=== PATIENT | male | born 1950 | race Caucasian/White ===

== ENCOUNTER 2016-12-28 22:49 | Emergency (ER) | payer OTHER ==
[~2016-12-28] VITALS: Ht 180.3 cm; Wt 108.9 kg
--- NOTE | 2016-12-28 23:57 | PHYS DOC ---
Past Medical History Past Medical History: Diabetes-Type II, High Cholesterol, Hypertension Past Surgical History: Appendectomy, Tonsillectomy, Other Additional Past Surgical Histo: LAPBAND SX Alcohol Use: Occasionally Drug Use: None Adult General Chief Complaint Chief Complaint: NAUSEA/VOMITING/DIARRHA HPI HPI Patient is a 66 year old male who presents with complaint of possible esophageal foreign body. Patient states that earlier today he was eating pizza and after his second by he felt like it may have gotten caught down in his esophagus. Patient tried drinking water which he stated initially felt like it helped, however he states that currently he is having continued symptoms. Patient states that he feels an abnormal sensation in his lower chest and upper abdomen. Patient states that he has had history of LAP-BAND procedure done 4 years ago. The patient has had no further vomiting. During patient interview, the patient spit up his own saliva. Patient is concerned that he has an esophageal obstruction and came to the emergency department for evaluation. Review of Systems Review of Systems Constitutional: Denies fever or chills [] Eyes: Denies change in visual acuity, redness, or eye pain [] HENT: Denies nasal congestion or sore throat [] Respiratory: Denies cough or shortness of breath [] Cardiovascular: Denies chest pain or edema [] GI: Vomiting, abdominal discomfort, denies diarrhea [] : Denies dysuria or hematuria [] Musculoskeletal: Denies back pain or joint pain [] Integument: Denies rash or skin lesions [] Neurologic: Denies headache, focal weakness or sensory changes [] Current Medications Current Medications Current Medications Medications (Trade) Dose Ordered Sig/Mariana Start Time Stop Time Status Last Admin Dose Admin Glucagon (Glucagen) 1 mg 1X ONCE 12/29/16 00:15 12/29/16 00:16 DC 12/29/16 00:31 1 MG Midazolam HCl (Versed) 1 mg 1X ONCE 12/29/16 00:15 12/29/16 00:16 DC 12/29/16 00:31 1 MG Sodium Chloride 1,000 ml @ 100 mls/hr Q10H 12/29/16 00:00 12/29/16 09:59 12/29/16 00:31 100 MLS/HR Allergies Allergies Allergies Coded Allergies Type Severity Reaction Last Updated Verified No Known Drug Allergies 12/28/16 No Physical Exam Physical Exam Constitutional: Alert, afebrile, appears in mild discomfort. [] HENT: Normocephalic, atraumatic, bilateral external ears normal, oropharynx moist, no oral exudates, nose normal. [] Eyes: PERRLA, EOMI, conjunctiva normal, no discharge. [] Neck: Normal range of motion, no tenderness, supple, no stridor. [] Cardiovascular:Heart rate regular rhythm, no murmur [] Lungs & Thorax: Bilateral breath sounds clear to auscultation [] Abdomen: Bowel sounds normal, soft, no tenderness, no masses, no pulsatile masses. [] Skin: Warm, dry, no erythema, no rash. [] Back: No tenderness, no CVA tenderness. [] Extremities: No tenderness, no cyanosis, no clubbing, ROM intact, no edema. [] Neurologic: Alert and oriented X 3, normal motor function, normal sensory function, no focal deficits noted. [] Current Patient Data Vital Signs Vital Signs Date Time Temp Pulse Resp B/P (MAP) Pulse Ox O2 Delivery O2 Flow Rate FiO2 12/28/16 23:20 98.3 86 18 154/85 (108) 90 Room Air 98.3 Lab Values Laboratory Tests Test 12/28/16 23:47 White Blood Count 15.1 x10^3/uL (4.0-11.0) H Red Blood Count 5.67 x10^6/uL (4.30-5.70) Hemoglobin 17.0 g/dL (13.0-17.5) Hematocrit 52.8 % (39.0-53.0) Mean Corpuscular Volume 93 fL (79-100) Mean Corpuscular Hemoglobin 30 pg (25-35) Mean Corpuscular Hemoglobin Concent 32 g/dL (31-37) Red Cell Distribution Width 15.1 % (11.5-14.5) H Platelet Count 180 x10^3/uL (140-400) Neutrophils (%) (Auto) 77 % (31-73) H Lymphocytes (%) (Auto) 13 % (24-48) L Monocytes (%) (Auto) 7 % (0-9) Eosinophils (%) (Auto) 2 % (0-3) Basophils (%) (Auto) 1 % (0-3) Neutrophils # (Auto) 11.6 x10^3uL (1.8-7.7) H Lymphocytes # (Auto) 2.0 x10^3/uL (1.0-4.8) Monocytes # (Auto) 1.0 x10^3/uL (0.0-1.1) Eosinophils # (Auto) 0.3 x10^3/uL (0.0-0.7) Basophils # (Auto) 0.2 x10^3/uL (0.0-0.2) Segmented Neutrophils % 64 % (35-66) Band Neutrophils % 4 % (0-9) Lymphocytes % 18 % (24-48) L Monocytes % 9 % (0-10) Eosinophils % 2 % (0-5) Metamyelocytes % 1 % (0-0) H Myelocytes % 2 % (0-0) H Toxic Granulation Slight Platelet Estimate Adequate (ADEQUATE) Sodium Level 141 mmol/L (136-145) Potassium Level 4.5 mmol/L (3.5-5.1) Chloride Level 103 mmol/L (98-107) Carbon Dioxide Level 29 mmol/L (21-32) Anion Gap 9 (6-14) Blood Urea Nitrogen 19 mg/dL (8-26) Creatinine 1.1 mg/dL (0.7-1.3) Estimated GFR (Cockcroft-Gault) 67.4 BUN/Creatinine Ratio 17 (6-20) Glucose Level 160 mg/dL (70-99) H Calcium Level 9.3 mg/dL (8.5-10.1) Total Bilirubin 0.3 mg/dL (0.2-1.0) Aspartate Amino Transferase (AST) 25 U/L (15-37) Alanine Aminotransferase (ALT) 23 U/L (16-63) Alkaline Phosphatase 99 U/L (46-116) Total Protein 7.5 g/dL (6.4-8.2) Albumin 4.0 g/dL (3.4-5.0) Albumin/Globulin Ratio 1.1 (1.0-1.7) Lipase 174 U/L (73-393) Laboratory Tests 12/28/16 23:47 Laboratory Tests 12/28/16 23:47 EKG EKG Not performed [] Radiology/Procedures Radiology/Procedures One view AP chest x-ray interpreted by me: No infiltrates, no effusions, normal cardiac silhouette [] Course & Med Decision Making Course & Med Decision Making Pertinent Labs and Imaging studies reviewed. (See chart for details) The patient was given IV Versed and glucagon in the emergency department. On reevaluation, patient states his symptoms seem to have resolved. The patient was given oral fluids in the emergency department which she was able to tolerate without difficulty. The patient states he feels much better and would like to go home at this time. The patient will be referred to Dr. Whiteside of gastroenterology for follow-up in one to 2 weeks for reevaluation. The patient also has a scheduled appointment in the morning with his primary doctor. I advised that he continue with this appointment as scheduled. Recommended return emergency department for any worsening symptoms. Patient voiced understanding and in agreement with treatment plan. Dragon Disclaimer Dragon Disclaimer This electronic medical record was generated, in whole or in part, using a voice recognition dictation system. Departure Departure Impression: Primary Impression: Esophagus, foreign body Disposition: HOME, SELF-CARE Condition: IMPROVED Referrals: JON SPARKS (PCP) Patient Instructions: Dysphagia Additional Instructions: Follow-up with your primary doctor today as scheduled. Follow-up with Dr. Whiteside of gastroenterology in the next 1-2 weeks for reevaluation and to discuss possible need for endoscopy. Return to the emergency department for any worsening symptoms. Problem Qualifiers Primary Impression: Esophagus, foreign body Encounter type: initial encounter Qualified Codes: T18.108A - Unspecified foreign body in esophagus causing other injury, initial encounter CARRIE LONGORIA MD Dec 28, 2016 23:57
[2016-12-29] MEDS ORDERED: IV NORMAL SALINE 1000ML BAG 1,000 ML IV SCH
[2016-12-29 00:07] LABS: BASO # 0.2 x10^3/uL (0.0-0.2); BASO % 1 % (0-3); EOS % 2 % (0-3); HEMATOCRIT 52.8 % (39.0-53.0); LYMPH % 13 % (24-48); MEAN CORPUSCULAR HEMOGLOBIN 30 pg (25-35); MEAN CORPUSCULAR HGB CONC 32 g/dL (31-37); MEAN CORPUSCULAR VOLUME 93 fL (79-100); MONO % 7 % (0-9); NEUT % 77 % (31-73); PLATELET COUNT 180 x10^3/uL (140-400); RED BLOOD COUNT 5.67 x10^6/uL (4.30-5.70); RED CELL DISTRIBUTION WIDTH 15.1 % (11.5-14.5); WHITE BLOOD COUNT 15.1 x10^3/uL (4.0-11.0)
[2016-12-29] MEDS ORDERED: MIDAZOLAM HCL/PF 2 MG/2 ML VIAL. IV ONE (00:15)
[2016-12-29] MEDS ORDERED: GLUCAGON,HUMAN RECOMBINANT 1 MG/ML VIAL. IV ONE (00:15)
[2016-12-29 00:16] LABS: CALCIUM 9.3 mg/dL (8.5-10.1); CREATININE 1.1 mg/dL (0.7-1.3); GFR 67.4; POTASSIUM 4.5 mmol/L (3.5-5.1)
[2016-12-29 00:21] LABS: ALBUMIN/GLOBULIN RATIO 1.1 (1.0-1.7); TOTAL BILIRUBIN 0.3 mg/dL (0.2-1.0); TOTAL PROTEIN 7.5 g/dL (6.4-8.2)
[2016-12-29 00:48] LABS: % EOS 2 % (0-5); PLT ESTIMATE ADEQUATE (ADEQUATE); TOXIC GRANULATION SLIGHT
[2016-12-29 01:00] VITALS: BP 144/89
--- NOTE | 2016-12-29 08:20 | RAD ---
EXAM: Chest one view. HISTORY: Esophageal foreign body sensation. COMPARISON: 10/22/2009. FINDINGS: A frontal view of the chest is obtained. There is no radiopaque foreign body. There are limitations from rotation to the right. The right hilum appears enlarged, though this may be projectional. There are interstitial opacities in both bases suggesting atelectasis. There is no pneumothorax or pleural effusion. The heart is not enlarged. IMPRESSION: 1. Prominence of the right hilum may be projectional. A repeat upright 2 view radiograph is recommended to exclude a mass versus CT. 2. Basilar atelectasis.
[2016-12-29] MEDS ORDERED: CLOP75TA PO (19:14)
[2016-12-29] MEDS ORDERED: METF500T4 PO (19:14)
[2016-12-29] MEDS ORDERED: LISI-334 PO (19:14)
[2016-12-29] MEDS ORDERED: GEMF600T3 PO (19:14)
[2016-12-29] MEDS ORDERED: LORA10TA3 PO (19:14)
[2016-12-29] MEDS ORDERED: GLIM1TAB2 PO (19:14)
[2016-12-29] MEDS ORDERED: ZOLP5TAB PO (19:14)
[2016-12-29] MEDS ORDERED: ATOR40TA59 PO (19:14)
[2016-12-29] MEDS ORDERED: METO25TA4 PO (19:14)
[2016-12-29] MEDS ORDERED: AMLO5TAB2 PO (19:14)
== END 2016-12-29 01:35 | disposition home or self-care (01) ==
LOC: ER 22:49
DX: T18.108A Unspecified foreign body in esophagus causing other injury, initial encounter (principal); E11.9 Type 2 diabetes mellitus without complications; E78.00 Pure hypercholesterolemia, unspecified; I10 Essential (primary) hypertension; Z90.49 Acquired absence of other specified parts of digestive tract; Z98.890 Other specified postprocedural states; X58.XXXA Exposure to other specified factors, initial encounter; Y93.89 Activity, other specified; Y99.8 Other external cause status; Y92.89 Other specified places as the place of occurrence of the external cause
CPT/HCPCS: 36415; 71010; 80053; 83690; 85007; 85027; 96361; 96374; 96375; 99285; J1610; J2250; J7030

== ENCOUNTER 2016-12-29 11:05 | Observation (INO) | payer OTHER ==
[~2016-12-29] VITALS: Ht 182.9 cm; Wt 117.0 kg
[2016-12-29] MEDS ORDERED: GLUCAGON,HUMAN RECOMBINANT 1 MG/ML VIAL. IV ONE (12:15)
[2016-12-29] MEDS ORDERED: IV NORMAL SALINE 500ML BAG 500 ML IV ONE (12:15)
[2016-12-29] MEDS ORDERED: ONDANSETRON PF 4 MG/2 ML VIAL. IV ONE (12:30)
[2016-12-29] MEDS ORDERED: IOHEXOL 350 MG/ML 100 ML VIAL. PO ONE (12:45)
[2016-12-29] MEDS ORDERED: ONDANSETRON PF 4 MG/2 ML VIAL. IV PRN (12:45)
[2016-12-29] MEDS ORDERED: CONTRAST GIVEN MC PRN ×2 (12:45→13:15)
[2016-12-29] MEDS ORDERED: IOHEXOL 300 MG/ML 75 ML VIAL IV ONE (13:00)
[2016-12-29] MEDS ORDERED: IOHEXOL 240 MG/ML 50ML VIAL. PO ONE (13:00)
[2016-12-29] MEDS: MORPHINE SULFATE 2 MG/ML DISP.SYRIN. IV PRN ×2 (13:24→16:59)
--- NOTE | 2016-12-29 13:33 | PHYS DOC ---
Past Medical History Past Medical History: Diabetes-Type II, High Cholesterol, Hypertension Past Surgical History: Appendectomy, Tonsillectomy, Other Additional Past Surgical Histo: LAPBAND SX Alcohol Use: Occasionally Drug Use: Marijuana Adult General Chief Complaint Chief Complaint: nausea and vomiting HPI HPI 66-year-old gentleman presenting to the emergency department today with epigastric abdominal pain that is mild nonradiating intermittent and without alleviating factors. It is associated with nausea and vomiting. He was seen last night by Dr. De La Cruz. Blood work was unremarkable. Patient received Versed and glucagon and reported improved symptoms and subsequently was discharged home. The patient comes in today after having coffee this morning and having the same symptoms. He reports as soon as he had the coffee, that he felt nauseous and vomited yellow colored fluid. He denies any blood or bilious fluid in his vomit. He does not remember who his surgeon who put in his lap band was. He was placed in [place] approximately 4 years ago. He denies any fevers or chills at home. Review of systems is negative for chest pain shortness of breath fevers chills and positive for nausea vomiting. All other review of systems is negative unless otherwise noted in history of present illness. ED course: 66-year-old male presenting to the emergency department today with nausea vomiting and unable to take oral intake. Initial vital signs show the patient to be afebrile with a normal heart rate. Blood pressure chronically elevated. The patient received IV fluids along with nausea medications. I discussed the case with Dr. Odonnell the patient's physician who admits for his primary care physician who accepted the patient for admission given his return to the emergency department in such a short amount of time and inability to take oral intake. I placed a consult for our GI team to evaluate the patient as well. Blood work was repeated. On reexamination the patient was feeling mildly improved with fluid and nausea medications. I ordered a CT of the abdomen pelvis. CT shows possible food bolus. This report came back after the patient was already admitted. I have already placed a consultation for GI and the patient was able to swallow his secretions and drink clear liquids in the emergency department without any vomiting. Patient's care is already been transferred at this time. Review of Systems Review of Systems SEE ABOVE. Current Medications Current Medications Current Medications Medications (Trade) Dose Ordered Sig/Mariana Start Time Stop Time Status Last Admin Dose Admin Glucagon (Glucagen) 1 mg 1X ONCE 12/29/16 12:15 12/29/16 12:26 DC Info (Do NOT chart on this entry -- for MONITORING) 1 each PRN DAILY PRN 12/29/16 13:15 12/31/16 13:14 Cancel Iohexol (Omnipaque 240 Mg/ml) 50 ml 1X ONCE 12/29/16 13:00 12/29/16 13:01 DC 12/29/16 13:00 50 ML Iohexol (Omnipaque 300 Mg/ml) 75 ml 1X ONCE 12/29/16 13:00 12/29/16 13:01 DC Iohexol (Omnipaque 350 Mg/ml) 100 ml 1X ONCE 12/29/16 12:45 12/29/16 12:46 DC Morphine Sulfate 2 mg PRN Q2HR PRN 12/29/16 12:45 12/30/16 12:44 12/29/16 16:59 2 MG Ondansetron HCl (Zofran) 4 mg PRN Q8HRS PRN 12/29/16 12:45 12/30/16 12:44 Sodium Chloride 500 ml @ 500 mls/hr 1X ONCE 12/29/16 12:15 12/29/16 13:14 DC 12/29/16 13:21 500 MLS/HR Allergies Allergies Physical Exam Physical Exam SEE ABOVE Constitutional: Well developed, well nourished, no acute distress, non-toxic appearance. [] HENT: Normocephalic, atraumatic, bilateral external ears normal, oropharynx moist, no oral exudates, nose normal. [] Eyes: PERRLA, EOMI, conjunctiva normal, no discharge. [] Neck: Normal range of motion, no tenderness, supple, no stridor. [] Cardiovascular:Heart rate regular rhythm, no murmur [] Lungs & Thorax: Bilateral breath sounds clear to auscultation [] Abdomen: Soft nontender abdomen without rebound tenderness or guarding present. Negative McBurneys point. Negative Mckeon sign. No ecchymosis present. Skin: Warm, dry, no erythema, no rash. [] Back: No tenderness, no CVA tenderness. [] Extremities: No tenderness, no cyanosis, no clubbing, ROM intact, no edema. [] Neurologic: Alert and oriented X 3, normal motor function, normal sensory function, no focal deficits noted. [] Psychologic: Affect normal, judgement normal, mood normal. [] Current Patient Data Vital Signs Vital Signs Date Time Temp Pulse Resp B/P (MAP) Pulse Ox O2 Delivery O2 Flow Rate FiO2 12/29/16 13:08 72 19 150/71 (97) 94 Room Air 12/29/16 11:22 97.9 97.9 Lab Values Laboratory Tests Test 12/29/16 13:20 White Blood Count 13.6 x10^3/uL (4.0-11.0) H Red Blood Count 5.62 x10^6/uL (4.30-5.70) Hemoglobin 16.9 g/dL (13.0-17.5) Hematocrit 52.3 % (39.0-53.0) Mean Corpuscular Volume 93 fL (79-100) Mean Corpuscular Hemoglobin 30 pg (25-35) Mean Corpuscular Hemoglobin Concent 32 g/dL (31-37) Red Cell Distribution Width 15.0 % (11.5-14.5) H Platelet Count 166 x10^3/uL (140-400) Neutrophils (%) (Auto) 75 % (31-73) H Lymphocytes (%) (Auto) 16 % (24-48) L Monocytes (%) (Auto) 7 % (0-9) Eosinophils (%) (Auto) 2 % (0-3) Basophils (%) (Auto) 1 % (0-3) Neutrophils # (Auto) 10.1 x10^3uL (1.8-7.7) H Lymphocytes # (Auto) 2.2 x10^3/uL (1.0-4.8) Monocytes # (Auto) 0.9 x10^3/uL (0.0-1.1) Eosinophils # (Auto) 0.3 x10^3/uL (0.0-0.7) Basophils # (Auto) 0.1 x10^3/uL (0.0-0.2) Sodium Level 143 mmol/L (136-145) Potassium Level 4.5 mmol/L (3.5-5.1) Chloride Level 104 mmol/L (98-107) Carbon Dioxide Level 34 mmol/L (21-32) H Anion Gap 5 (6-14) L Blood Urea Nitrogen 19 mg/dL (8-26) Creatinine 1.0 mg/dL (0.7-1.3) Estimated GFR (Cockcroft-Gault) 75.2 Glucose Level 131 mg/dL (70-99) H Calcium Level 8.7 mg/dL (8.5-10.1) Total Bilirubin 0.4 mg/dL (0.2-1.0) Direct Bilirubin 0.1 mg/dL (0.0-0.2) Aspartate Amino Transferase (AST) 26 U/L (15-37) Alanine Aminotransferase (ALT) 28 U/L (16-63) Alkaline Phosphatase 90 U/L (46-116) Total Protein 7.5 g/dL (6.4-8.2) Albumin 4.0 g/dL (3.4-5.0) Lipase 148 U/L (73-393) Laboratory Tests 12/29/16 13:20 Laboratory Tests 12/29/16 13:20 EKG EKG [] Radiology/Procedures Radiology/Procedures [] Course & Med Decision Making Course & Med Decision Making Pertinent Labs and Imaging studies reviewed. (See chart for details) [] Dragon Disclaimer Dragon Disclaimer This electronic medical record was generated, in whole or in part, using a voice recognition dictation system. Departure Departure Impression: Primary Impression: Nausea & vomiting Additional Impression: Epigastric abdominal pain Disposition: 09 ADMITTED INPATIENT Admitting Physician: Mario Odonnell Condition: STABLE Referrals: JON SPARKS (PCP) Problem Qualifiers KALLIE ALICEA MD Dec 29, 2016 13:32
[2016-12-29 13:39] LABS: BASO # 0.1 x10^3/uL (0.0-0.2); BASO % 1 % (0-3); EOS % 2 % (0-3); HEMATOCRIT 52.3 % (39.0-53.0); HEMOGLOBIN 16.9 g/dL (13.0-17.5); LYMPH # 2.2 x10^3/uL (1.0-4.8); LYMPH % 16 % (24-48); MEAN CORPUSCULAR HEMOGLOBIN 30 pg (25-35); MEAN CORPUSCULAR HGB CONC 32 g/dL (31-37); MEAN CORPUSCULAR VOLUME 93 fL (79-100); MONO % 7 % (0-9); NEUT % 75 % (31-73); PLATELET COUNT 166 x10^3/uL (140-400); RED BLOOD COUNT 5.62 x10^6/uL (4.30-5.70); WHITE BLOOD COUNT 13.6 x10^3/uL (4.0-11.0)
[2016-12-29 13:45] LABS: CALCIUM 8.7 mg/dL (8.5-10.1); GFR 75.2; POTASSIUM 4.5 mmol/L (3.5-5.1)
[2016-12-29 13:51] LABS: DIRECT BILIRUBIN 0.1 mg/dL (0.0-0.2); TOTAL BILIRUBIN 0.4 mg/dL (0.2-1.0); TOTAL PROTEIN 7.5 g/dL (6.4-8.2)
[2016-12-29 15:00] VITALS: BP 131/75
[2016-12-29 15:17] VITALS: BP 131/75
--- NOTE | 2016-12-29 15:22 | PDOC2 ---
GI CONSULT Reason For Consult: N/v s/p lap band HPI: HPI: 66 y/o male w/ h/o lap band placed 4 years ago in [place]. Has had intermittent dysphagia (solid food gets stuck in midchest, sometimes coughs up, sometimes passes) since then. Last night two bites of [employer] pizza got stuck, could not maintain his own secretions. Symptoms did not resolve as normal so he came to the ER where eventually he was improved w/ w/ Versed and glucagon. This morning, similar symptoms recurred w/ n/v after taking two sips of coffee, so he returned to the ER and was admitted. Lost >100 pounds w/ lap band w/o regaining. H/o GERD prior to surgery, occasionally treated w/ OTC medications but no longer needs. Does not recall previous EGD. Some constipation improved w/ fiber pills and stool softeners. Recalls normal colonoscopy w/ Dr. Bhatt @ [facility] ~2 years ago. No hematemesis, melena, hematochezia. No NSAID use. PMH: PMH: HTN, DM, HLD, fatty liver, appendectomy, tonsillectomy, FH: Family History: No pertinent hx (den), Cancer (lung cancer - mother) Social History: Smoke: <1 pack per day ALCOHOL: occassional Drugs: None ROS: GEN: Denies fevers, chills, sweats HEENT: Denies blurred vision, sore throat CV: Denies chest pain RESP: Denies shortness of air, cough GI: Per HPI : Denies hematuria, dysuria ENDO: +weight loss NEURO: Denies confusion, dizziness MSK: Denies weakness, joint pain/swelling SKIN: Denies jaundice, pruritus Vitals: Vitals: Vital Signs Date Time Temp Pulse Resp B/P (MAP) Pulse Ox O2 Delivery O2 Flow Rate FiO2 12/29/16 14:08 71 20 136/77 (96) 95 Room Air 12/29/16 11:22 97.9 97.9 Labs: Labs: Laboratory Tests Test 12/29/16 13:20 White Blood Count 13.6 x10^3/uL (4.0-11.0) Red Blood Count 5.62 x10^6/uL (4.30-5.70) Hemoglobin 16.9 g/dL (13.0-17.5) Hematocrit 52.3 % (39.0-53.0) Mean Corpuscular Volume 93 fL (79-100) Mean Corpuscular Hemoglobin 30 pg (25-35) Mean Corpuscular Hemoglobin Concent 32 g/dL (31-37) Red Cell Distribution Width 15.0 % (11.5-14.5) Platelet Count 166 x10^3/uL (140-400) Neutrophils (%) (Auto) 75 % (31-73) Lymphocytes (%) (Auto) 16 % (24-48) Monocytes (%) (Auto) 7 % (0-9) Eosinophils (%) (Auto) 2 % (0-3) Basophils (%) (Auto) 1 % (0-3) Neutrophils # (Auto) 10.1 x10^3uL (1.8-7.7) Lymphocytes # (Auto) 2.2 x10^3/uL (1.0-4.8) Monocytes # (Auto) 0.9 x10^3/uL (0.0-1.1) Eosinophils # (Auto) 0.3 x10^3/uL (0.0-0.7) Basophils # (Auto) 0.1 x10^3/uL (0.0-0.2) Sodium Level 143 mmol/L (136-145) Potassium Level 4.5 mmol/L (3.5-5.1) Chloride Level 104 mmol/L (98-107) Carbon Dioxide Level 34 mmol/L (21-32) Anion Gap 5 (6-14) Blood Urea Nitrogen 19 mg/dL (8-26) Creatinine 1.0 mg/dL (0.7-1.3) Estimated GFR (Cockcroft-Gault) 75.2 Glucose Level 131 mg/dL (70-99) Calcium Level 8.7 mg/dL (8.5-10.1) Total Bilirubin 0.4 mg/dL (0.2-1.0) Direct Bilirubin 0.1 mg/dL (0.0-0.2) Aspartate Amino Transf (AST/SGOT) 26 U/L (15-37) Alanine Aminotransferase (ALT/SGPT) 28 U/L (16-63) Alkaline Phosphatase 90 U/L (46-116) Total Protein 7.5 g/dL (6.4-8.2) Albumin 4.0 g/dL (3.4-5.0) Lipase 148 U/L (73-393) Allergies: Coded Allergies: Iodinated Contrast- Oral and IV Dye (Verified Allergy, Unknown, hives , ) not allergic to oral Medications: Current Medications Medications (Trade) Dose Ordered Sig/Mariana Route PRN Reason Start Time Stop Time Status Last Admin Dose Admin Sodium Chloride 500 ml @ 500 mls/hr 1X ONCE IV 12/29/16 12:15 12/29/16 13:14 DC 12/29/16 13:21 Ondansetron HCl (Zofran) 4 mg 1X ONCE IV 12/29/16 12:30 12/29/16 12:31 DC 12/29/16 13:22 Morphine Sulfate 2 mg PRN Q2HR PRN IV PAIN 12/29/16 12:45 12/30/16 12:44 12/29/16 13:24 Iohexol (Omnipaque 240 Mg/ml) 50 ml 1X ONCE PO 12/29/16 13:00 12/29/16 13:01 DC 12/29/16 13:00 Imaging: Imaging: CXR 12/28/16 IMPRESSION: 1. Prominence of the right hilum may be projectional. A repeat upright 2 view radiograph is recommended to exclude a mass versus CT. 2. Basilar atelectasis. CT A/P 12/29/16 Report pending. PE: GEN: NAD HEENT: Atraumatic, PERRL LUNGS: CTAB anteriorly HEART: RRR ABD: BS+, distended/overweight, non-tender EXTREMITY: trace BLE edema SKIN: No rashes, no jaundice NEURO/PSYCH: A & O 3 A/P: A/P: Food bolus, dysphagia -intermittent symptoms since lab band ~4 years ago, more significant last night after eating pizza S/p lap band H/o GERD -prior to lap band, no longer bothersome CRC screen -recalls normal colonoscopy ~2 years ago -- Reviewed CT w/ Dr. Armas, food bolus present. Was given contrast, so will plan for EGD tomorrow. SADIA BARROS Dec 29, 2016 15:22
--- NOTE | 2016-12-29 15:40 | RAD ---
Indication nausea and vomiting. Epigastric pain. Note is made that the patient is status post appendectomy. Axial images through the abdomen and pelvis were obtained. Oral contrast was administered. IV contrast was not. No prior CT imaging of the abdomen or pelvis is available. The lung bases are unremarkable. Gastric left band is noted. There is some material in the distal esophagus, above the lap band, which may represent a fluid bolus. There is no evidence of complete obstruction as considerable contrast is seen in the small bowel loops. There is extensive coronary artery calcification. No definite hepatic or splenic abnormality is seen. The gallbladder appears grossly normal. No pancreatic pathology is seen. No adrenal or renal anomalies are seen. There are masses seen associated with the kidneys left more so than right compatible with cysts. No acute finding is apparent in the abdomen. Diverticular disease is seen associated with the large bowel most pronounced in the sigmoid colon. Active inflammation is not seen. An acute finding in the pelvis is not apparent. IMPRESSION: A definite significant finding in the abdomen or pelvis is not seen. Possible food bolus in the distal esophagus just above the lap band
[2016-12-29] MEDS: IV RINGERS,LACTATED 1000ML 1,000 ML IV SCH (17:01)
[2016-12-29 19:00] VITALS: BP 139/65
[2016-12-29] MEDS ORDERED: AMLO5TAB2 PO (19:14)
[2016-12-29] MEDS ORDERED: ATOR40TA59 PO (19:14)
[2016-12-29] MEDS ORDERED: GEMF600T3 PO (19:14)
[2016-12-29] MEDS ORDERED: ZOLP5TAB PO (19:14)
[2016-12-29] MEDS ORDERED: LORA10TA3 PO (19:14)
[2016-12-29] MEDS ORDERED: LISI-334 PO (19:14)
[2016-12-29] MEDS ORDERED: METF500T4 PO (19:14)
[2016-12-29] MEDS ORDERED: GLIM1TAB2 PO (19:14)
[2016-12-29] MEDS ORDERED: METO25TA4 PO (19:14)
[2016-12-29] MEDS ORDERED: CLOP75TA PO (19:14)
[2016-12-29] MEDS: IV DEXTROSE 5% - 0.9 % NACL 1,000 ML IV SCH (19:30)
[2016-12-29] MEDS ORDERED: ZOLPIDEM 5 MG TABLET. PO PRN (19:30)
[2016-12-29] MEDS ORDERED: DEXTROSE 50% 25 GM / 50ML DISP.SYRIN. IV PRN (19:30)
[2016-12-29] MEDS: GEMFIBROZIL 600 MG TABLET. PO SCH (20:49)
[2016-12-29] MEDS: LISINOPRIL 20 MG TABLET PO SCH (20:49)
[2016-12-29] MEDS: METOPROLOL TART IMMED RELEASE 25 MG TABLET. PO SCH (20:50)
[2016-12-29] MEDS ORDERED: CETIRIZINE HCL 10 MG TABLET. PO SCH (21:00)
[2016-12-29] MEDS ORDERED: ATORVASTATIN CALCIUM 40 MG TABLET. PO SCH (21:00)
[2016-12-29 23:00] VITALS: BP_SYST 103; BP_SYST 145; BP_DIAS 57; BP_DIAS 82
--- NOTE | 2016-12-30 02:23 | ACF ---
Admission Forms Criteria VOMITING Clinical Indications for Admission to Inpatient Care ( Place 'X' for any and all applicable criteria): Admission is indicated for 1 or more of the following(1)(2)(3): [ ]I. Complete or partial gastrointestinal obstruction [ ]II. Vomiting due to significant metabolic derangement (eg, severe hypercalcemia, diabetic ketoacidosis) [ ]III. Other cause of vomiting requiring hospitalization (eg, poisoning, increased intracranial pressure) [X]IV. Inpatient admission required rather than observation care because of 1 or more of the following [ ]i) Hemodynamic instability [ ]ii) Vomiting that is severe or persistent indicated by 1 or more of the following 1) Numerous episodes of vomiting in past 24hours (eg, every 1 to 2 hours) 2) Suggests severe underlying cause or complication (eg , projectile, feculent, bilious, coffee ground, bloody) 3) Appropriate antiemetic treatment (eg, repeated oral or parenteral dosing) does not sufficiently reduce vomiting within 12 to 24 hours of treatment 4) Treatment regimen necessary to adequately control vomiting requires inpatient level of care (eg, not immediately available in outpatient setting) [ ]iii) Severe electrolyte abnormalities requiring inpatient care [X]iv) Severe pain requiring acute inpatient management( Continuous or frequent (eg, every 2 to 4 hours) parental analgesics or analgesic regimen that can only be performed or initiated in inpatient setting) [ ]v) High fever or infection requiring inpatient admission as indicated by 1 or more of the following(7)(8): [ ]1) Appropriate outpatient or observation care antimicrobial treatment unavailable, not effective, or not feasible [ ]2) Documented bacteremia [ ]3) Temp >104.9 degrees F (40.5 degrees C) (oral) [ ]4) Temp >103.1 degrees F (39.5 C) (oral) or <96.8 degrees F (36 C) (rectal) that does not respond to all emergency treatment measures [ ]vi) Acute renal failure [ ]vii) IV fluid required rather than oral rehydration to replace significant on going losses (greater than 3 L/m2 per day) [ ]viii) Parenteral nutrition regimen that must be implemented on inpatient basis [ ]ix) Other condition, treatment or monitoring requiring inpatient admission Extended stay beyond goal length of stay may be needed for(1)(4): [ ]a) Severe vomiting [ ]b) Persistent vomiting, vital sign changes, severe electrolyte imbalance , or diagnosed cause of vomiting that requires continued hospitalization (eg, gastrointestinal obstruction , increased intracranial pressure) [ ]c) Surgery to treat identified causes of vomiting (eg, bowel obstruction , intracranial process) [ ]d) Comorbid illness that requires inpatient care (eg, acute heart failure , renal failure) [ ]e) Need for inpatient endoscopy The original [facility] [employer] content created by [employer] has been revised. The portions of the content which have been revised are identified through the use of italic text or in bold, and [facility] has neither reviewed nor approved the modified material. All other unmodified content is copyright [email or web address]. Please see references footnoted in the original [facility] [employer] edition 2016 Admission Criteria Met?: Yes ALEJA SANCHEZ Dec 30, 2016 02:23
[2016-12-30] MEDS: IV DEXTROSE 5% - 0.9 % NACL 1,000 ML IV SCH (04:41)
[2016-12-30] MEDS: IV RINGERS,LACTATED 1000ML 1,000 ML IV SCH (04:41)
[2016-12-30 06:27] LABS: CALCIUM 7.8 mg/dL (8.5-10.1); CREATININE 0.9 mg/dL (0.7-1.3); POTASSIUM 4.6 mmol/L (3.5-5.1)
[2016-12-30 06:40] LABS: BASO # 0.2 x10^3/uL (0.0-0.2); BASO % 2 % (0-3); EOS % 2 % (0-3); HEMATOCRIT 48.3 % (39.0-53.0); HEMOGLOBIN 15.8 g/dL (13.0-17.5); LYMPH % 15 % (24-48); MEAN CORPUSCULAR HEMOGLOBIN 30 pg (25-35); MEAN CORPUSCULAR HGB CONC 33 g/dL (31-37); MEAN CORPUSCULAR VOLUME 92 fL (79-100); MONO % 5 % (0-9); NEUT % 77 % (31-73); PLATELET COUNT 163 x10^3/uL (140-400); RED BLOOD COUNT 5.28 x10^6/uL (4.30-5.70); RED CELL DISTRIBUTION WIDTH 15.1 % (11.5-14.5); WHITE BLOOD COUNT 13.6 x10^3/uL (4.0-11.0)
[2016-12-30 07:00] VITALS: BP 137/73
[2016-12-30] MEDS: LISINOPRIL 20 MG TABLET PO SCH (07:55)
[2016-12-30] MEDS: MORPHINE SULFATE 2 MG/ML DISP.SYRIN. IV PRN (07:56)
[2016-12-30] MEDS: METOPROLOL TART IMMED RELEASE 25 MG TABLET. PO SCH (07:56)
[2016-12-30] MEDS: GEMFIBROZIL 600 MG TABLET. PO SCH (07:57)
[2016-12-30] MEDS: INSULIN ASPART 300 UNITS/3 ML INSULN.PEN SQ SCH ×2 (08:00→11:13)
[2016-12-30] MEDS ORDERED: CLOPIDOGREL BISULFATE 75 MG TABLET PO SCH (09:00)
[2016-12-30] MEDS ORDERED: amLODIPine BESYLATE 5 MG TABLET PO SCH (09:00)
--- NOTE | 2016-12-30 10:06 | PDOC1 ---
HISTORY AND PHYSICAL Chief Complaint Chief Complaint 66 y/o male w/ h/o lap band placed 4 years ago in [place]. Has had intermittent dysphagia (solid food gets stuck in midchest, sometimes coughs up, sometimes passes) since then. Last night two bites of [place] [employer] pizza got stuck, could not maintain his own secretions. Symptoms did not resolve as normal so he came to the ER where eventually he was improved w/ w/ Versed and glucagon. This morning, similar symptoms recurred w/ n/v after taking two sips of coffee, so he returned to the ER and was admitted. CT scan showed food bolus above lap band, seen by GI scheduled for EGD today . Lost >100 pounds w/ lap band w/o regaining. H/o GERD prior to surgery, occasionally treated w/ OTC medications but no longer needs. Does not recall previous EGD. Some constipation improved w/ fiber pills and stool softeners. Recalls normal colonoscopy w/ Dr. Bhatt @ [facility] ~2 years ago. No hematemesis, melena, hematochezia. No NSAID use. Problems: Past Medical History Cardiovascular: CAD, HTN Pulmonary: Other (sleep apnea) GI: GERD Endocrine: Diabetes Past Surgical History PSH cardaic stentx1 lap band Past Family History Family History: Coronary Artery Disease, Diabetes, Hypertension Past Social History PSH ex smoker,social alcohol ,no drugs Review of Symptoms Review of Symptoms General ROS: positive for food stuck in lower esophagus Psychological ROS: negative Ophthalmic ROS: negative ENT ROS: negative Allergy and Immunology ROS: negative Hematology and Lymphatic: negative Endocrine ROS: negative Respiratory ROS: no cold, cough, dyspnea. Cardiovascular ROS: no chest pain or dyspnea on exertion Gastrointestinal ROS: no abdominal pain, change in bowel habits, or black or bloody stools Genito-Urinary ROS: no dysuria, trouble voiding, or hematuria Musculoskeletal ROS: no pain Neurological ROS: negative Dermatological ROS: no rash Medications Current Medications Amlodipine Besylate (Norvasc) 5 mg DAILY PO Last administered on 12/30/16 07: 55; Start 12/30/16 at 09:00 Atorvastatin Calcium (Lipitor) 40 mg QHS PO Last administered on 12/29/16 20: 49; Start 12/29/16 at 21:00 Cetirizine HCl (ZyrTEC) 10 mg QHS PO Last administered on 12/29/16 20:49; Start 12/29/16 at 21:00 Clopidogrel Bisulfate (Plavix) 75 mg DAILY PO Last administered on 12/30/16 07 :55; Start 12/30/16 at 09:00 Dextrose (Dextrose 50%-Water Syringe) 12.5 gm PRN Q15MIN PRN IV SEE COMMENTS; Start 12/29/16 at 19:30 Dextrose/Sodium Chloride 1,000 ml @ 100 mls/hr Q10H IV Last administered on 04:41; Start 12/29/16 at 19:30 Gemfibrozil (Lopid) 600 mg BIDWMEALS PO Last administered on 12/29/16 20:49; Start 12/29/16 at 20:00 Glucagon (Glucagen) 1 mg 1X ONCE IV ; Start 12/29/16 at 12:15; Stop 12/29/16 at 12:26; Status DC Info (Do NOT chart on this entry -- for MONITORING) 1 each PRN DAILY PRN MC SEE COMMENTS; Start 12/29/16 at 12:45; Stop 12/31/16 at 12:44 Info (Do NOT chart on this entry -- for MONITORING) 1 each PRN DAILY PRN MC SEE COMMENTS; Start 12/29/16 at 13:15; Stop 12/31/16 at 13:14; Status Cancel Insulin Aspart (NovoLOG) 0-7 UNITS TIDWMEALS SQ ; Start 12/30/16 at 08:00 Iohexol (Omnipaque 240 Mg/ml) 50 ml 1X ONCE PO Last administered on 12/29/16 13:00; Start 12/29/16 at 13:00; Stop 12/29/16 at 13:01; Status DC Iohexol (Omnipaque 300 Mg/ml) 75 ml 1X ONCE IV ; Start 12/29/16 at 13:00; Stop 12/29/16 at 13:01; Status DC Iohexol (Omnipaque 350 Mg/ml) 100 ml 1X ONCE PO ; Start 12/29/16 at 12:45; Stop 12/29/16 at 12:46; Status DC Lisinopril (Prinivil) 20 mg BID PO Last administered on 12/30/16 07:55; Start 12/29/16 at 21:00 Metoprolol Tartrate (Lopressor) 25 mg BID PO Last administered on 12/30/16 07: 56; Start 12/29/16 at 21:00 Morphine Sulfate 2 mg PRN Q2HR PRN IV PAIN Last administered on 12/30/16 07:56 ; Start 12/29/16 at 12:45; Stop 12/30/16 at 12:44 Ondansetron HCl (Zofran) 4 mg 1X ONCE IV Last administered on 12/29/16 13:22 ; Start 12/29/16 at 12:30; Stop 12/29/16 at 12:31; Status DC Ondansetron HCl (Zofran) 4 mg PRN Q8HRS PRN IV NAUSEA/VOMITING; Start 12/29/16 at 12:45; Stop 12/30/16 at 12:44 Ringer's Solution 1,000 ml @ 75 mls/hr [id number] IV Last administered on 17:01; Start 12/29/16 at 16:00 Sodium Chloride 500 ml @ 500 mls/hr 1X ONCE IV Last administered on 13:21; Start 12/29/16 at 12:15; Stop 12/29/16 at 13:14; Status DC Zolpidem Tartrate (Ambien) 5 mg PRN QHS PRN PO INSOMNIA Last administered on 20:49; Start 12/29/16 at 19:30 Allergy Allergies Coded Allergies Type Severity Reaction Last Updated Verified Iodinated Contrast- Oral and IV Dye Allergy Unknown hives 12/29/16 Yes Physical Exam Physical Exam General appearance - obese not in distress alert,well appearing, and in no distress and oriented to person, place, and time Mental Status - alert, oriented to person, place, and time, affect appropriate to mood Head - normal Chest - clear to auscultation, no wheezes, rales or rhonchi, symmetric air entry Heart - S1 and S2 normal Abdomen - soft, nontender, nondistended, no masses or organomegaly Neurological - alert and oriented Musculoskeletal - no muscular tenderness noted Extremities - no pedal edema Skin - warm and dry no brewster Labs Laboratory Tests Test 12/29/16 13:20 12/29/16 16:18 12/29/16 21:02 12/30/16 05:45 White Blood Count 13.6 x10^3/uL (4.0-11.0) 13.6 x10^3/uL (4.0-11.0) Red Blood Count 5.62 x10^6/uL (4.30-5.70) 5.28 x10^6/uL (4.30-5.70) Hemoglobin 16.9 g/dL (13.0-17.5) 15.8 g/dL (13.0-17.5) Hematocrit 52.3 % (39.0-53.0) 48.3 % (39.0-53.0) Mean Corpuscular Volume 93 fL (79-100) 92 fL (79-100) Mean Corpuscular Hemoglobin 30 pg (25-35) 30 pg (25-35) Mean Corpuscular Hemoglobin Concent 32 g/dL (31-37) 33 g/dL (31-37) Red Cell Distribution Width 15.0 % (11.5-14.5) 15.1 % (11.5-14.5) Platelet Count 166 x10^3/uL (140-400) 163 x10^3/uL (140-400) Neutrophils (%) (Auto) 75 % (31-73) 77 % (31-73) Lymphocytes (%) (Auto) 16 % (24-48) 15 % (24-48) Monocytes (%) (Auto) 7 % (0-9) 5 % (0-9) Eosinophils (%) (Auto) 2 % (0-3) 2 % (0-3) Basophils (%) (Auto) 1 % (0-3) 2 % (0-3) Neutrophils # (Auto) 10.1 x10^3uL (1.8-7.7) 10.5 x10^3uL (1.8-7.7) Lymphocytes # (Auto) 2.2 x10^3/uL (1.0-4.8) 2.0 x10^3/uL (1.0-4.8) Monocytes # (Auto) 0.9 x10^3/uL (0.0-1.1) 0.7 x10^3/uL (0.0-1.1) Eosinophils # (Auto) 0.3 x10^3/uL (0.0-0.7) 0.2 x10^3/uL (0.0-0.7) Basophils # (Auto) 0.1 x10^3/uL (0.0-0.2) 0.2 x10^3/uL (0.0-0.2) Sodium Level 143 mmol/L (136-145) 141 mmol/L (136-145) Potassium Level 4.5 mmol/L (3.5-5.1) 4.6 mmol/L (3.5-5.1) Chloride Level 104 mmol/L (98-107) 105 mmol/L (98-107) Carbon Dioxide Level 34 mmol/L (21-32) 32 mmol/L (21-32) Anion Gap 5 (6-14) 4 (6-14) Blood Urea Nitrogen 19 mg/dL (8-26) 19 mg/dL (8-26) Creatinine 1.0 mg/dL (0.7-1.3) 0.9 mg/dL (0.7-1.3) Estimated GFR (Cockcroft-Gault) 75.2 85.0 Glucose Level 131 mg/dL (70-99) 139 mg/dL (70-99) Calcium Level 8.7 mg/dL (8.5-10.1) 7.8 mg/dL (8.5-10.1) Total Bilirubin 0.4 mg/dL (0.2-1.0) Direct Bilirubin 0.1 mg/dL (0.0-0.2) Aspartate Amino Transf (AST/SGOT) 26 U/L (15-37) Alanine Aminotransferase (ALT/SGPT) 28 U/L (16-63) Alkaline Phosphatase 90 U/L (46-116) Total Protein 7.5 g/dL (6.4-8.2) Albumin 4.0 g/dL (3.4-5.0) Lipase 148 U/L (73-393) Glucose (Fingerstick) 131 mg/dL (70-99) 116 mg/dL (70-99) Test 12/30/16 06:58 Glucose (Fingerstick) 162 mg/dL (70-99) Laboratory Tests Test 12/29/16 13:20 12/29/16 16:18 12/29/16 21:02 12/30/16 05:45 White Blood Count 13.6 x10^3/uL (4.0-11.0) 13.6 x10^3/uL (4.0-11.0) Red Blood Count 5.62 x10^6/uL (4.30-5.70) 5.28 x10^6/uL (4.30-5.70) Hemoglobin 16.9 g/dL (13.0-17.5) 15.8 g/dL (13.0-17.5) Hematocrit 52.3 % (39.0-53.0) 48.3 % (39.0-53.0) Mean Corpuscular Volume 93 fL (79-100) 92 fL (79-100) Mean Corpuscular Hemoglobin 30 pg (25-35) 30 pg (25-35) Mean Corpuscular Hemoglobin Concent 32 g/dL (31-37) 33 g/dL (31-37) Red Cell Distribution Width 15.0 % (11.5-14.5) 15.1 % (11.5-14.5) Platelet Count 166 x10^3/uL (140-400) 163 x10^3/uL (140-400) Neutrophils (%) (Auto) 75 % (31-73) 77 % (31-73) Lymphocytes (%) (Auto) 16 % (24-48) 15 % (24-48) Monocytes (%) (Auto) 7 % (0-9) 5 % (0-9) Eosinophils (%) (Auto) 2 % (0-3) 2 % (0-3) Basophils (%) (Auto) 1 % (0-3) 2 % (0-3) Neutrophils # (Auto) 10.1 x10^3uL (1.8-7.7) 10.5 x10^3uL (1.8-7.7) Lymphocytes # (Auto) 2.2 x10^3/uL (1.0-4.8) 2.0 x10^3/uL (1.0-4.8) Monocytes # (Auto) 0.9 x10^3/uL (0.0-1.1) 0.7 x10^3/uL (0.0-1.1) Eosinophils # (Auto) 0.3 x10^3/uL (0.0-0.7) 0.2 x10^3/uL (0.0-0.7) Basophils # (Auto) 0.1 x10^3/uL (0.0-0.2) 0.2 x10^3/uL (0.0-0.2) Sodium Level 143 mmol/L (136-145) 141 mmol/L (136-145) Potassium Level 4.5 mmol/L (3.5-5.1) 4.6 mmol/L (3.5-5.1) Chloride Level 104 mmol/L (98-107) 105 mmol/L (98-107) Carbon Dioxide Level 34 mmol/L (21-32) 32 mmol/L (21-32) Anion Gap 5 (6-14) 4 (6-14) Blood Urea Nitrogen 19 mg/dL (8-26) 19 mg/dL (8-26) Creatinine 1.0 mg/dL (0.7-1.3) 0.9 mg/dL (0.7-1.3) Estimated GFR (Cockcroft-Gault) 75.2 85.0 Glucose Level 131 mg/dL (70-99) 139 mg/dL (70-99) Calcium Level 8.7 mg/dL (8.5-10.1) 7.8 mg/dL (8.5-10.1) Total Bilirubin 0.4 mg/dL (0.2-1.0) Direct Bilirubin 0.1 mg/dL (0.0-0.2) Aspartate Amino Transf (AST/SGOT) 26 U/L (15-37) Alanine Aminotransferase (ALT/SGPT) 28 U/L (16-63) Alkaline Phosphatase 90 U/L (46-116) Total Protein 7.5 g/dL (6.4-8.2) Albumin 4.0 g/dL (3.4-5.0) Lipase 148 U/L (73-393) Glucose (Fingerstick) 131 mg/dL (70-99) 116 mg/dL (70-99) Test 12/30/16 06:58 Glucose (Fingerstick) 162 mg/dL (70-99) Vitals Vital Signs Date Time Temp Pulse Resp B/P (MAP) Pulse Ox O2 Delivery O2 Flow Rate FiO2 7/18/17 09:06 Room Air 12/30/16 07:56 73 137/73 12/30/16 07:00 98.3 20 82 98.3 VTE Prophylaxis VTE Prophylaxis Devices: Yes VTE Pharmacological Prophylaxi: No Assessment Assessment IMP: food stuck in esophagus s/p lap band cad s/p stent DM obesity BMI 35 sleep apnea on CPAP at home Plan Plan CT scan abd and pelvis showed food bolus above lap band site. EGD scheduled today. home later today. labs ok For more details regarding further plans, please refer to the orders. VIKTORIYA TURNER MD Dec 30, 2016 10:06
--- NOTE | 2016-12-30 10:20 | RAD ---
Indication fluid bolus. Evaluate for aspiration. Shortness of breath. A single view of the chest was obtained and is compared to an examination one day earlier. Note is made of a CT examination of the abdomen and pelvis yesterday. The heart and pulmonary vessels appear normal. The lungs are clear. There is no acute parenchymal infiltrate. There has not been a significant change since yesterday's exam. IMPRESSION: No acute finding apparent in the chest
[2016-12-30 10:48] VITALS: BP 107/60
[2016-12-30] MEDS ORDERED: PROPOFOL 20 ML IV ONE (11:49)
[2016-12-30] MEDS ORDERED: LIDOCAINE 2% PF Vial for OR 5 ML VIAL. ONE (11:50)
[2016-12-30] MEDS ORDERED: IV RINGERS,LACTATED 1000ML 1,000 ML IV SCH (12:45)
--- NOTE | 2016-12-30 13:55 | PDOC4 ---
PROCEDURE Procedure EGD/foreign body. Indication: impacted food bolus. Meds; per anesthesia Findings: E--Food bolus (cheese) distally; removed ultimately with [place] net. Distal ~ grade I reflux. G--Lap band deformity, cardia. D--multiple erosions, bulb into second portion. No discrete ulcer per se. Ruddy. well. IMP: Impacted food, resolved. Reflux esophagitis. Extensive duodenal erosions, significance unclear. REC: OK to feed/dismiss. Consider PPI. Consider loosening LapBand some. Thanks. TEJAS STEVENSON MD Dec 30, 2016 13:55
[2016-12-30 14:47] VITALS: BP 135/73
--- NOTE | 2016-12-31 10:14 | PDOC3 ---
IM DISCHARGE SUMMARY Date of Admission Date of Admission Date of Admission: Dec 29, 2016 at 13:23 Date of Discharge Date of Discharge 12/30/16 Primary Diagnosis Primary Diagnosis Problems Medical Problems: (1) Epigastric abdominal pain Status: Acute Problems: Consults Consults GI -dr omalley Procedures Procedures EGD Indication: impacted food bolus. Meds; per anesthesia Findings: E--Food bolus (cheese) distally; removed ultimately with [place] net. Distal ~ grade I reflux. G--Lap band deformity, cardia. D--multiple erosions, bulb into second portion. No discrete ulcer per se. Labs Labs Laboratory Tests Test 12/30/16 10:19 Glucose (Fingerstick) 151 mg/dL (70-99) Brief hospital course Brief hospital course This is 66 year old male who presented with food stuck in food pipe, eating cheese pizza, h/o gatric banding 4 yrs ago. Admitted to hospital ,seen by GI, Nai egd , removed food cheese ,he was discharged. For more details regarding the past history, family history, social history, surgical history and other details, please refer to History and Physical. Medications Current Medications Lidocaine HCl (Lidocaine Pf 2% Vial) 5 ml STK-MED ONCE .ROUTE ; Start 12/30/16 at 11:50; Stop 12/30/16 at 11:51; Status DC Propofol 20 ml @ As Directed STK-MED ONCE IV ; Start 12/30/16 at 11:49; Stop at 11:50; Status DC Ringer's Solution 1,000 ml @ 75 mls/hr [id number] IV ; Start 12/30/16 at 12:45; Stop 12/30/16 at 15:29; Status DC Allergy Allergies Coded Allergies Type Severity Reaction Last Updated Verified Iodinated Contrast- Oral and IV Dye Allergy Intermediate hives 12/30/16 Yes Follow up in 5 days. DISPOSITION: Home Comments Discharge Management - 20 minutes. For other details please refer to discharge instructions VIKTORIYA TURNER MD Dec 31, 2016 10:14
== END 2016-12-30 15:29 | disposition home or self-care (01) ==
LOC: ER 11:05 → INTOOBSV 13:23 → 5 NORTH 13:23
PROVIDERS: ADMIT Internal Medicine; ATTEND Internal Medicine
DX: T18.128A Food in esophagus causing other injury, initial encounter (principal); R13.10 Dysphagia, unspecified; I25.10 Atherosclerotic heart disease of native coronary artery without angina pectoris; K21.0 Gastro-esophageal reflux disease with esophagitis; I10 Essential (primary) hypertension; G47.30 Sleep apnea, unspecified; E11.9 Type 2 diabetes mellitus without complications; E78.5 Hyperlipidemia, unspecified; F17.210 Nicotine dependence, cigarettes, uncomplicated; E78.00 Pure hypercholesterolemia, unspecified; K76.0 Fatty (change of) liver, not elsewhere classified; F12.90 Cannabis use, unspecified, uncomplicated; Z98.84 Bariatric surgery status; Z95.818 Presence of other cardiac implants and grafts; Z95.5 Presence of coronary angioplasty implant and graft; Z79.899 Other long term (current) drug therapy; Z83.3 Family history of diabetes mellitus; Z82.49 Family history of ischemic heart disease and other diseases of the circulatory system; X58.XXXA Exposure to other specified factors, initial encounter; Y93.89 Activity, other specified; Y99.8 Other external cause status; Y92.89 Other specified places as the place of occurrence of the external cause
CPT/HCPCS: 36415; 43247; 71010; 74176; 80048; 80076; 82962; 83690; 85027; 94660; 96361; 96374; 96375; 96376; 99285; C1757; G0378; J1815; J2001; J2270; J2405; J2704; J7040; Q9966; G0379; J7042; J7120; A6539

== ENCOUNTER → 2017-07-07 | Outpatient (CLI) | payer MEDICARE, OTHER | END | disposition home or self-care (01) | LOC: US 07:19 | DX: I70.201 Unspecified atherosclerosis of native arteries of extremities, right leg (principal); I77.1 Stricture of artery | CPT/HCPCS: 93925 ==